=== PATIENT | female | born 1980 | race Caucasian/White ===

== ENCOUNTER 2020-09-22 18:31 | Emergency (ER) | payer BC, OTHER ==
[2020-09-22 18:40] VITALS: TEMP 98.2; BMI 39.9
[2020-09-22] MEDS ORDERED: SODIUM CHLORIDE 0.9% 500 ML INFUS.BAG IV ONE (20:12)
[2020-09-22 20:56] LABS: BASO % 0.8 % (0-2.0); HEMATOCRIT 43.8 % (32.4-45.2); HEMOGLOBIN 15.1 GM/dL (10.7-15.3); LYMPH % 32.4 % (8-40); MCH 29.9 pg (25.7-33.7); MCHC 34.3 g/dl (32.0-36.0); MEAN CELL VOLUME 87.1 fl (80-96); MEAN PLT VOLUME 8.5 fl (7.5-11.1); MONO % 7.1 % (3.8-10.2); NEUT % 57.7 % (42.8-82.8); PLATELET COUNT 333 10^3/uL (134-434); RBC 5.03 M/mm3 (3.60-5.2); RDW 13.1 % (11.6-15.6); WHITE BLOOD COUNT 12.4 K/mm3 (4.0-10.0)
[2020-09-22 21:15] LABS: CHLORIDE 104 mmol/L (98-107); SODIUM 137 mmol/L (136-145)
[2020-09-22 21:17] LABS: CALCIUM 8.9 mg/dL (8.5-10.1)
[2020-09-22 21:18] LABS: ALBUMIN 3.7 g/dl (3.4-5.0); ANION GAP 9 MMOL/L (8-16); BLOOD UREA NITROGEN 15.8 mg/dL (7-18); CO2 24 mmol/L (21-32); GLUCOSE,RANDOM 109 mg/dL (74-106)
[2020-09-22 21:20] LABS: INR 0.89 (0.83-1.09); PROTHROMBIN TIME (PATIENT) 10.8 SEC (9.7-13.0)
[2020-09-22 21:21] LABS: CREATININE 0.7 mg/dL (0.55-1.3); SGOT/AST 18 U/L (15-37); SGPT/ALT 25 U/L (13-61)
[2020-09-22 21:23] LABS: BILIRUBIN,TOTAL 0.2 mg/dL (0.2-1); TOT PROT 7.6 g/dl (6.4-8.2)
[2020-09-22 21:24] LABS: ALK PHOS 117 U/L (45-117)
[2020-09-22 21:56] LABS: URINE APPEARANCE CLEAR; URINE BILIRUBIN NEGATIVE (NEGATIVE); URINE COLOR YELLOW; URINE GLUCOSE (UA) NEGATIVE (NEGATIVE); URINE KETONE TRACE (NEGATIVE); URINE LEUK ESTERASE NEGATIVE (NEGATIVE); URINE NITRITE NEGATIVE (NEGATIVE); URINE PROTEIN NEGATIVE (NEGATIVE)
[2020-09-22 22:57] VITALS: BP 118/75; PULSE 79
== END 2020-09-22 22:59 | disposition home or self-care (01) ==
LOC: JER 18:31
DX: M79.604 Pain in right leg (principal); M79.605 Pain in left leg
CPT/HCPCS: 36415; 71046-TC-FY; 80053; 81003; 82550; 84484; 85025; 85610; 85730; 87086; 93005; 93010; 93970-TC; 99285-25

== ENCOUNTER 2020-09-26 21:03 | Observation (INO) | payer BC ==
[2020-09-26 21:39] VITALS: BMI 40.6
[2020-09-26 23:39] LABS: URINE APPEARANCE CLOUDY; URINE BILIRUBIN NEGATIVE (NEGATIVE); URINE COLOR YELLOW; URINE GLUCOSE (UA) NEGATIVE (NEGATIVE); URINE KETONE NEGATIVE (NEGATIVE); URINE LEUK ESTERASE NEGATIVE (NEGATIVE); URINE NITRITE NEGATIVE (NEGATIVE); URINE PROTEIN NEGATIVE (NEGATIVE)
[2020-09-26 23:48] LABS: HCG,QUALITATIVE URINE Negative
[2020-09-26 23:52] LABS: BASO % 1.1 % (0-2.0); EOS % 1.7 % (0-4.5); HEMATOCRIT 40.1 % (32.4-45.2); HEMOGLOBIN 13.9 GM/dL (10.7-15.3); LYMPH % 36.2 % (8-40); MCH 30.1 pg (25.7-33.7); MCHC 34.5 g/dl (32.0-36.0); MEAN CELL VOLUME 87.2 fl (80-96); MONO % 7.1 % (3.8-10.2); NEUT % 53.9 % (42.8-82.8); PLATELET COUNT 290 10^3/uL (134-434); RDW 13.2 % (11.6-15.6); WHITE BLOOD COUNT 11.5 K/mm3 (4.0-10.0)
[2020-09-26 23:58] LABS: INR 0.91 (0.83-1.09)
[2020-09-27 00:01] LABS: ACTIVATED PTT 29.9 SECONDS (25.2-36.5)
[2020-09-27 00:12] LABS: CHLORIDE 106 mmol/L (98-107); SODIUM 140 mmol/L (136-145)
[2020-09-27 00:14] LABS: ALBUMIN 3.4 g/dl (3.4-5.0); ANION GAP 8 MMOL/L (8-16); BLOOD UREA NITROGEN 18.8 mg/dL (7-18); CALCIUM 8.7 mg/dL (8.5-10.1); CO2 26 mmol/L (21-32); GLUCOSE,RANDOM 87 mg/dL (74-106); MAGNESIUM 2.1 mg/dL (1.8-2.4)
[2020-09-27 00:18] LABS: CREATININE 0.7 mg/dL (0.55-1.3); SGOT/AST 15 U/L (15-37); SGPT/ALT 23 U/L (13-61)
[2020-09-27 00:19] LABS: BILIRUBIN,TOTAL 0.2 mg/dL (0.2-1)
[2020-09-27 00:20] LABS: ALK PHOS 119 U/L (45-117); TOT PROT 7.1 g/dl (6.4-8.2)
[2020-09-27 03:09] LABS: COCAINE, UR NEGATIVE (NEGATIVE); PHENCYCLIDINE,URINE NEGATIVE (NEGATIVE); URINE AMPHETAMINES NEGATIVE (NEGATIVE)
[2020-09-27] MEDS ORDERED: ACETAMINOPHEN 325 MG TABLET (FP) PO PRN (03:16)
[2020-09-27 03:25] LABS: METHADONE, UR NEGATIVE (NEGATIVE); OPIATES, URI NEGATIVE (NEGATIVE); URINE BARBITURATES NEGATIVE (NEGATIVE); URINE BENZODIAZEPINES NEGATIVE (NEGATIVE)
[2020-09-27] MEDS ORDERED: DOCUSATE SODIUM 100 MG CAPSULE (FP) PO PRN (04:08)
[2020-09-27 06:23] LABS: BASO % 0.8 % (0-2.0); EOS % 1.8 % (0-4.5); HEMATOCRIT 40.8 % (32.4-45.2); HEMOGLOBIN 13.5 GM/dL (10.7-15.3); LYMPH % 30.3 % (8-40); MCH 29.5 pg (25.7-33.7); MCHC 33.1 g/dl (32.0-36.0); MEAN PLT VOLUME 8.7 fl (7.5-11.1); MONO % 7.8 % (3.8-10.2); NEUT % 59.3 % (42.8-82.8); PLATELET COUNT 276 10^3/uL (134-434); RBC 4.58 M/mm3 (3.60-5.2); RDW 13.3 % (11.6-15.6); WHITE BLOOD COUNT 10.4 K/mm3 (4.0-10.0)
[2020-09-27 06:40] LABS: CHLORIDE 108 mmol/L (98-107); SODIUM 138 mmol/L (136-145)
[2020-09-27 06:44] LABS: ANION GAP 6 MMOL/L (8-16); CALCIUM 8.1 mg/dL (8.5-10.1); CO2 23 mmol/L (21-32)
[2020-09-27 06:45] LABS: BLOOD UREA NITROGEN 17.8 mg/dL (7-18); GLUCOSE,RANDOM 133 mg/dL (74-106)
[2020-09-27 06:47] LABS: CHOLESTEROL 196 mg/dL (50-200); CREATININE 0.5 mg/dL (0.55-1.3); SGOT/AST 10 U/L (15-37); SGPT/ALT 19 U/L (13-61); TRIGLYCERIDES 167 mg/dL (0-150)
[2020-09-27 06:48] LABS: LDL CHOLESTEROL (ONLY SJRH) 127 mg/dL (5-100); TOT PROT 6.3 g/dl (6.4-8.2)
[2020-09-27 06:49] LABS: ALK PHOS 101 U/L (45-117); BILIRUBIN,TOTAL 0.2 mg/dL (0.2-1)
[2020-09-27 06:50] LABS: HDL CHOLESTEROL 42 mg/dL (40-60)
[2020-09-27 09:13] VITALS: TEMP 98.1
[2020-09-27] MEDS ORDERED: DOCUSATE SODIUM 100 MG CAPSULE (FP) PO SCH (10:00)
[2020-09-27 11:53] VITALS: BP 120/66; PULSE 74
== END 2020-09-27 12:04 | disposition home or self-care (01) ==
LOC: JER 21:03 → UNDOADMOB 09-27 00:56 → JERBED 09-27 00:56 → OBSVTOIN 09-27 03:17 → INTOOBSV 09-27 03:17 → JERBED 09-27 10:48
PROVIDERS: ADMIT Internal Medicine; ATTEND Internal Medicine
DX: Z85.43 Personal history of malignant neoplasm of ovary (principal); R06.02 Shortness of breath; R07.9 Chest pain, unspecified; D68.52 Prothrombin gene mutation; E03.9 Hypothyroidism, unspecified; J45.909 Unspecified asthma, uncomplicated; E78.5 Hyperlipidemia, unspecified; E28.2 Polycystic ovarian syndrome; Z79.899 Other long term (current) drug therapy; M79.661 Pain in right lower leg; Z88.0 Allergy status to penicillin; Z91.018 Allergy to other foods; Z91.013 Allergy to seafood; Z91.041 Radiographic dye allergy status; F17.210 Nicotine dependence, cigarettes, uncomplicated
CPT/HCPCS: 36415; 70450-TC; 71046-TC-FY; 80053; 80061; 80307; 81003; 82550; 82607; 83036; 83721; 83735; 84100; 84439; 84443; 84484; 84703; 85025; 85379; 85610; 85730; 93005; 93010; 93971-TC; 99285-25; C9803; G0378; U0003; U0005

== ENCOUNTER 2020-11-16 16:51 | Inpatient (IN) | payer BC, OTHER ==
[2020-11-16] MEDS ORDERED: CLINDAMYCIN 900 MG PREMIX IVPB 900 MG/50 ML BAG IVPB ONE ×2 (18:35→20:11)
[2020-11-16] MEDS ORDERED: ACETAMINOPHEN 1000 MG/100 ML BAG IVPB ONE (18:36)
[2020-11-16 18:44] LABS: BASO % 1.2 % (0-2.0); EOS % 1.4 % (0-4.5); HEMATOCRIT 37.5 % (32.4-45.2); LYMPH % 25.2 % (8-40); MCH 30.1 pg (25.7-33.7); MCHC 34.6 g/dl (32.0-36.0); MEAN CELL VOLUME 86.9 fl (80-96); MEAN PLT VOLUME 7.9 fl (7.5-11.1); NEUT % 62.2 % (42.8-82.8); PLATELET COUNT 327 10^3/uL (134-434); RBC 4.31 M/mm3 (3.60-5.2); RDW 12.7 % (11.6-15.6); WHITE BLOOD COUNT 12.3 K/mm3 (4.0-10.0)
[2020-11-16 19:02] LABS: CHLORIDE 109 mmol/L (98-107); SODIUM 140 mmol/L (136-145)
[2020-11-16 19:03] LABS: INR 1.04 (0.83-1.09); PROTHROMBIN TIME (PATIENT) 12.6 SEC (9.7-13.0)
[2020-11-16 19:04] LABS: CALCIUM 8.7 mg/dL (8.5-10.1)
[2020-11-16 19:05] LABS: ALBUMIN 3.1 g/dl (3.4-5.0); ANION GAP 6 MMOL/L (8-16); CO2 24 mmol/L (21-32); GLUCOSE,RANDOM 108 mg/dL (74-106)
[2020-11-16 19:06] LABS: ACTIVATED PTT 29.5 SECONDS (25.2-36.5)
[2020-11-16 19:08] LABS: CREATININE 0.8 mg/dL (0.55-1.3); SGOT/AST 3 U/L (15-37); SGPT/ALT 17 U/L (13-61)
[2020-11-16 19:11] LABS: ALK PHOS 112 U/L (45-117)
[2020-11-16 19:14] LABS: BILIRUBIN,TOTAL 0.4 mg/dL (0.2-1)
[2020-11-16] MEDS ORDERED: ACETAMINOPHEN INJECTION 100 ML IVPB ONE (20:11)
[2020-11-16] MEDS ORDERED: NICOTINE 7 MG/24 HOURS TOPICAL PATCH TD PRN (21:34)
[2020-11-16] MEDS ORDERED: SODIUM CHLORIDE 1,000 ML IV SCH (22:00)
[2020-11-17] MEDS ORDERED: ACETAMINOPHEN 1000 MG/100 ML BAG IVPB ONE (02:18)
[2020-11-17] MEDS: CLINDAMYCIN 900 MG PREMIX IVPB 900 MG/50 ML BAG IVPB SCH ×3 (02:39→17:28)
[2020-11-17 05:30] VITALS: BMI 42.0
[2020-11-17] MEDS ORDERED: ACETAMINOPHEN INJECTION 100 ML IVPB ONE (06:30)
[2020-11-17 09:36] LABS: BASO % 0.6 % (0-2.0); EOS % 1.4 % (0-4.5); HEMATOCRIT 33.9 % (32.4-45.2); HEMOGLOBIN 11.8 GM/dL (10.7-15.3); MCH 30.4 pg (25.7-33.7); MEAN PLT VOLUME 8.1 fl (7.5-11.1); MONO % 9.7 % (3.8-10.2); NEUT % 63.3 % (42.8-82.8); PLATELET COUNT 259 10^3/uL (134-434); RBC 3.89 M/mm3 (3.60-5.2); RDW 12.9 % (11.6-15.6); WHITE BLOOD COUNT 9.8 K/mm3 (4.0-10.0)
[2020-11-17] MEDS ORDERED: PT OWN MED DRAWER 7, Y5N ONE (10:17)
[2020-11-17 10:27] LABS: ALBUMIN 2.8 g/dl (3.4-5.0)
[2020-11-17 10:28] LABS: BLOOD UREA NITROGEN 13.8 mg/dL (7-18); CALCIUM 7.9 mg/dL (8.5-10.1)
[2020-11-17 10:30] LABS: PHOSPHOROUS 3.7 mg/dL (2.5-4.9)
[2020-11-17 10:43] LABS: BILIRUBIN,TOTAL 0.3 mg/dL (0.2-1); CREATININE 0.7 mg/dL (0.55-1.3); MAGNESIUM 2.3 mg/dL (1.8-2.4); TOT PROT 6.8 g/dl (6.4-8.2)
[2020-11-17] MEDS ORDERED: BUPIVACAINE HCL/PF 0.5% (5MG/ML) 10 ML VIAL ONE (12:31)
[2020-11-17] MEDS ORDERED: MIDAZOLAM HCL 2 MG/2 ML SINGLE DOSE VIAL ONE (12:34)
[2020-11-17] MEDS ORDERED: CLINDAMYCIN 900 MG PREMIX BAG IVPB ONE (12:58)
[2020-11-17] MEDS ORDERED: ONDANSETRON 4 MG/2 ML VIAL ONE (13:03)
[2020-11-17] MEDS ORDERED: PROMETHAZINE HCL 25 MG/1 ML VIAL IVPUSH PRN (13:12)
[2020-11-17] MEDS ORDERED: ONDANSETRON 4 MG/2 ML VIAL IVPUSH PRN (13:12)
[2020-11-17] MEDS ORDERED: NICOTINE 7 MG/24 HOURS TOPICAL PATCH TD PRN (13:54)
[2020-11-17] MEDS: LACTATED RINGERS SOLUTION 1,000 ML IV SCH (16:31)
[2020-11-17 18:01] LABS: URINE APPEARANCE CLEAR; URINE BILIRUBIN NEGATIVE (NEGATIVE); URINE COLOR YELLOW; URINE GLUCOSE (UA) NEGATIVE (NEGATIVE); URINE KETONE NEGATIVE (NEGATIVE); URINE LEUK ESTERASE NEGATIVE (NEGATIVE); URINE NITRITE NEGATIVE (NEGATIVE); URINE PROTEIN NEGATIVE (NEGATIVE); URINE UROBILINOGEN 0.2 mg/dL (0.2-1.0)
[2020-11-18] MEDS ORDERED: ACETAMINOPHEN 1000 MG/100 ML BAG IVPB ONE (00:39)
[2020-11-18] MEDS: CLINDAMYCIN 900 MG PREMIX IVPB 900 MG/50 ML BAG IVPB SCH ×3 (01:36→17:05)
[2020-11-18] MEDS ORDERED: NICOTINE 7 MG/24 HOURS TOPICAL PATCH TD SCH (09:04)
[2020-11-18] MEDS: NICOTINE 7 MG/24 HOURS TOPICAL PATCH TD SCH ×2 (09:38→10:00)
[2020-11-18] MEDS: ACETAMINOPHEN 325 MG TABLET (FP) PO PRN (10:40)
[2020-11-18] MEDS: LACTATED RINGERS SOLUTION 1,000 ML IV SCH (17:12)
[2020-11-19] MEDS ORDERED: PT OWN MED DRAWER 7, Y5N ONE ×2 (00:52→09:37)
[2020-11-19] MEDS: CLINDAMYCIN 900 MG PREMIX IVPB 900 MG/50 ML BAG IVPB SCH ×3 (01:47→18:12)
[2020-11-19] MEDS: ACETAMINOPHEN 325 MG TABLET (FP) PO PRN ×2 (01:53→16:58)
[2020-11-19] MEDS: NICOTINE 7 MG/24 HOURS TOPICAL PATCH TD SCH (09:36)
[2020-11-19] MEDS ORDERED: POLYETHYLENE GLYCOL (HEALTHYLAX) 3350 17 GM PACKET PO PRN (10:51)
[2020-11-19] MEDS ORDERED: SENNOSIDES 8.6MG TABLET (FP) PO PRN (10:51)
[2020-11-20] MEDS: CLINDAMYCIN 900 MG PREMIX IVPB 900 MG/50 ML BAG IVPB SCH ×3 (01:33→18:16)
[2020-11-20] MEDS: ACETAMINOPHEN 325 MG TABLET (FP) PO PRN (02:23)
[2020-11-20] MEDS ORDERED: PT OWN MED DRAWER 7, Y5N ONE ×2 (08:50→17:12)
[2020-11-20] MEDS: NICOTINE 7 MG/24 HOURS TOPICAL PATCH TD SCH (09:06)
[2020-11-20] MEDS: POLYETHYLENE GLYCOL (HEALTHYLAX) 3350 17 GM PACKET PO SCH (21:33)
[2020-11-20] MEDS: DOCUSATE SODIUM 100 MG CAPSULE (FP) PO SCH (21:33)
[2020-11-21] MEDS ORDERED: PT OWN MED DRAWER 7, Y5N ONE (01:52)
[2020-11-21] MEDS: CLINDAMYCIN 900 MG PREMIX IVPB 900 MG/50 ML BAG IVPB SCH ×2 (01:57→09:22)
[2020-11-21] MEDS: POLYETHYLENE GLYCOL (HEALTHYLAX) 3350 17 GM PACKET PO SCH (09:22)
[2020-11-21] MEDS: NICOTINE 7 MG/24 HOURS TOPICAL PATCH TD SCH (09:23)
[2020-11-21] MEDS: DOCUSATE SODIUM 100 MG CAPSULE (FP) PO SCH (09:23)
[2020-11-21 10:13] VITALS: BP 133/94; PULSE 75; TEMP 98
== END 2020-11-21 11:59 | disposition home or self-care (01) | DRG 364 ==
LOC: JERFT 16:51 → JER 16:51 → JERBED 18:34 → J5S 11-17 01:48
PROVIDERS: ADMIT Internal Medicine
PROC: 0J990ZZ Drainage of Buttock Subcutaneous Tissue and Fascia, Open Approach (ICD-10-PCS; principal; 2020-11-17 13:00)
DX: L05.01 Pilonidal cyst with abscess (principal); E03.9 Hypothyroidism, unspecified; E78.5 Hyperlipidemia, unspecified; F17.210 Nicotine dependence, cigarettes, uncomplicated; F98.8 Other specified behavioral and emotional disorders with onset usually occurring in childhood and adolescence; K59.00 Constipation, unspecified; G51.0 Bell's palsy; F90.9 Attention-deficit hyperactivity disorder, unspecified type; D72.829 Elevated white blood cell count, unspecified; F39 Unspecified mood [affective] disorder; J45.909 Unspecified asthma, uncomplicated; Z86.73 Personal history of transient ischemic attack (TIA), and cerebral infarction without residual deficits; Z85.43 Personal history of malignant neoplasm of ovary; E66.01 Morbid (severe) obesity due to excess calories; Z68.41 Body mass index [BMI] 40.0-44.9, adult; Z88.0 Allergy status to penicillin; Z85.00 Personal history of malignant neoplasm of unspecified digestive organ
CPT/HCPCS: 36415; 71045-TC-FY; 80053; 81003; 83735; 84100; 84443; 84702; 85025; 85610; 85730; 86850; 86900; 86901; 87040; 87070; 87076; 87205; 93005; 93010; 94760; 97116-GP; 97162-GP; 99285-25; C9803; J0131; U0003; U0005

== ENCOUNTER 2021-02-02 12:11 | Emergency (ER) | payer BC, OTHER ==
[2021-02-02 12:25] VITALS: BP 132/77; PULSE 79; TEMP 98.4; BMI 40.3
== END 2021-02-02 13:06 | disposition home or self-care (01) ==
LOC: JERFT 12:11
DX: L05.91 Pilonidal cyst without abscess (principal)
CPT/HCPCS: 99283-25

== ENCOUNTER 2021-02-19 04:42 | Day surgery (SDC) | payer BC ==
[2021-02-13 15:35] VITALS: BMI 40.5
[2021-02-19] MEDS ORDERED: PROPOFOL 20 ML ONE (12:59)
[2021-02-19] MEDS ORDERED: MIDAZOLAM HCL 2 MG/2 ML SINGLE DOSE VIAL ONE ×2 (13:00)
[2021-02-19] MEDS ORDERED: BUPIVACAINE HCL/PF 0.5% (5MG/ML) 10 ML VIAL ONE (13:23)
[2021-02-19] MEDS ORDERED: LIDOCAINE HCL 1%, 10 MG/ML (20ML VIAL) ONE (13:23)
[2021-02-19] MEDS ORDERED: METHYLENE BLUE 50 MG/10 ML AMPUL ONE (13:45)
[2021-02-19] MEDS ORDERED: ceFAZolin SODIUM 1 GM VIAL IVPB ONE (13:48)
[2021-02-19] MEDS ORDERED: ACETAMINOPHEN 1000 MG/100 ML VIAL IVPB ONE (14:31)
[2021-02-19] MEDS ORDERED: oxyCODONE HCL 5 MG TABLET PO PRN (14:31)
[2021-02-19] MEDS ORDERED: ONDANSETRON 4 MG/2 ML VIAL IVPUSH PRN (14:31)
[2021-02-19] MEDS ORDERED: LACTATED RINGERS SOLUTION 1,000 ML IV SCH (14:45)
[2021-02-19] MEDS ORDERED: ACETAMINOPHEN 325 MG TABLET (FP) ONE (20:31)
[2021-02-19 20:41] VITALS: BP 128/74; PULSE 69; TEMP 97.5
== END 2021-02-19 20:50 | disposition home or self-care (01) ==
LOC: JASU-SURG 04:42
PROVIDERS: ATTEND Surgery
PROC: 0JB90ZZ Excision of Buttock Subcutaneous Tissue and Fascia, Open Approach (ICD-10-PCS; principal; 2021-02-19 12:30)
DX: L05.92 Pilonidal sinus without abscess (principal); L05.91 Pilonidal cyst without abscess
CPT/HCPCS: 81025; 88304-TC; 94760; J0131; Q9968

== ENCOUNTER 2021-03-05 17:24 | Emergency (ER) | payer BC ==
[2021-03-05 17:42] VITALS: BP 115/82; PULSE 92; TEMP 98.2; BMI 39.6
[2021-03-05 18:46] LABS: BASO % 0.7 % (0-2.0); EOS % 1.7 % (0-4.5); HEMATOCRIT 39.1 % (32.4-45.2); HEMOGLOBIN 13.4 GM/dL (10.7-15.3); LYMPH % 31.3 % (8-40); MCH 30.3 pg (25.7-33.7); MCHC 34.3 g/dl (32.0-36.0); MEAN CELL VOLUME 88.2 fl (80-96); MEAN PLT VOLUME 7.8 fl (7.5-11.1); NEUT % 58.3 % (42.8-82.8); PLATELET COUNT 330 10^3/uL (134-434); RBC 4.43 M/mm3 (3.60-5.2); RDW 13.3 % (11.6-15.6); WHITE BLOOD COUNT 10.6 K/mm3 (4.0-10.0)
== END 2021-03-05 19:06 | disposition home or self-care (01) ==
LOC: JER 17:24
DX: R11.0 Nausea (principal); Z48.01 Encounter for change or removal of surgical wound dressing
CPT/HCPCS: 36415; 85025; 99283-25

== ENCOUNTER 2021-03-15 19:41 | Emergency (ER) | payer BC ==
[2021-03-15 19:54] VITALS: BP 132/81; PULSE 110; TEMP 99.1; BMI 39.6
[2021-03-15] MEDS ORDERED: ONDANSETRON *ODT* 4 MG TABLET SL ONE (21:07)
[2021-03-15] MEDS ORDERED: MAG HYDROX/AL HYDROX/SIMETH 30 ML UNIT-DOSE CUP PO ONE (21:08)
[2021-03-15] MEDS ORDERED: IBUPROFEN 600 MG TABLET (FP) PO ONE ×2 (21:08→22:33)
[2021-03-15] MEDS ORDERED: ONDANSETRON *ODT* 4 MG TABLET ONE (22:32)
[2021-03-15] MEDS ORDERED: MAG HYDROX/AL HYDROX/SIMETH 30 ML UNIT-DOSE CUP ONE (22:33)
[2021-03-17 23:07] LABS: SARS-CoV-2 NAA Not Detected (Not Detected)
== END 2021-03-15 23:34 | disposition home or self-care (01) ==
LOC: JER 19:41
DX: K52.9 Noninfective gastroenteritis and colitis, unspecified (principal); J02.9 Acute pharyngitis, unspecified
CPT/HCPCS: 87070; 87077; 87804; 87807; 99283-25; C9803; Q0162; U0003; U0005

== ENCOUNTER 2022-01-04 15:50 | Emergency (ER) | payer BC ==
[2022-01-04 16:06] VITALS: BP 121/71; PULSE 99; RESP 18; TEMP 98.2; BMI 42.0
[2022-01-04 18:06] LABS: PH,URINE 5.5 (5.0-8.0); URINE APPEARANCE CLEAR; URINE BILIRUBIN NEGATIVE (NEGATIVE); URINE COLOR YELLOW; URINE GLUCOSE (UA) NEGATIVE (NEGATIVE); URINE KETONE TRACE (NEGATIVE); URINE LEUK ESTERASE NEGATIVE (NEGATIVE); URINE NITRITE NEGATIVE (NEGATIVE); URINE PROTEIN NEGATIVE (NEGATIVE); URINE UROBILINOGEN 0.2 mg/dL (0.2-1.0)
[2022-01-04 18:09] LABS: HCG,QUALITATIVE URINE Negative
[2022-01-04] MEDS ORDERED: DEXAMETHASONE SOD PHOSPHATE 10 MG/1 ML VIAL ONE (21:31)
[2022-01-04] MEDS ORDERED: DEXAMETHASONE LIQUID 0.5 MG/5 ML PO ONE (21:32)
== END 2022-01-04 21:43 | disposition home or self-care (01) ==
LOC: JER 15:50
DX: M54.9 Dorsalgia, unspecified (principal)
CPT/HCPCS: 72148-TC; 81003; 84703; 87086; 99284-25

== ENCOUNTER 2022-03-01 17:51 | Emergency (ER) | payer BC, OTHER ==
[2022-03-01 18:05] VITALS: BP 107/72; PULSE 78; RESP 18; TEMP 98; BMI 42.0
[2022-03-01] MEDS ORDERED: ACETAMINOPHEN 325 MG TABLET (FP) PO ONE (20:03)
== END 2022-03-01 21:53 | disposition home or self-care (01) ==
LOC: JER 17:51 → JERFT 17:51
DX: M54.89 Other dorsalgia (principal); M25.511 Pain in right shoulder; V49.40XA Driver injured in collision with unspecified motor vehicles in traffic accident, initial encounter
CPT/HCPCS: 71046-TC-FY; 71111-TC-FY; 73030-TC-RT-FY; 73560-TC-LT-FY; 99284-25

== ENCOUNTER 2024-06-25 14:15 | Emergency (ER) | payer BC ==
[2024-06-25 14:40] VITALS: BMI 43.2
[2024-06-25] MEDS ORDERED: ACETAMINOPHEN INJECTION 100 ML ONE (16:28)
[2024-06-25 16:30] LABS: ABSOLUTE IMMATURE GRANULOCYTES 0.03 x10^3/uL (0.0-0.031); BASOPHILS # 0.08 x10^3/uL (0.01-0.08); EOSINOPHIL % 1.4 % (0.7-5.8); EOSINOPHILS # 0.13 x10^3/uL (0.04-0.36); HEMATOCRIT 39.3 % (34.1-44.9); MCHC 33.1 g/dl (32.2-35.5); MEAN CELL VOLUME 87.7 fl (79.4-94.8); MEAN PLT VOLUME 9.8 fl (9.4-12.3); MONOCYTE # 0.78 x10^3/uL (0.24-0.86); MONOCYTE % 8.2 % (4.7-12.5); PLATELET COUNT 312 x10^3/uL (182-369); RDW 12.5 % (12.2-17.1)
[2024-06-25] MEDS: ACETAMINOPHEN 1000 MG/100 ML BAG IVPB ONE (16:34)
[2024-06-25] MEDS: ACETAMINOPHEN 500 MG TABLET (FP) PO ONE (16:34)
[2024-06-25 16:36] VITALS: PULSE 72; TEMP 98.4
[2024-06-25 16:37] LABS: INR 1.05 (0.83-1.09); PROTHROMBIN TIME (PATIENT) 11.4 SEC (9.7-13.0)
[2024-06-25 16:40] LABS: ACTIVATED PTT 28.3 SECONDS (25.2-36.5)
[2024-06-25 16:53] LABS: POTASSIUM 4.1 mmol/L (3.5-5.1)
[2024-06-25 16:56] LABS: CALCIUM 8.7 mg/dL (8.5-10.1)
[2024-06-25 16:57] LABS: ALBUMIN 3.2 g/dl (3.4-5.0); BLOOD UREA NITROGEN 14.9 mg/dL (7-18); MAGNESIUM 2.2 mg/dL (1.8-2.4)
[2024-06-25 17:00] LABS: CREATININE 0.8 mg/dL (0.55-1.3)
[2024-06-25 17:01] LABS: BILIRUBIN,TOTAL 0.3 mg/dL (0.2-1)
[2024-06-25 17:12] VITALS: BP 106/53; RESP 20
== END 2024-06-25 17:00 | disposition home or self-care (01) ==
LOC: JER 14:15
PROC: 3E033NZ Introduction of Analgesics, Hypnotics, Sedatives into Peripheral Vein, Percutaneous Approach (ICD-10-PCS; principal; 2024-06-25)
DX: M54.50 Low back pain, unspecified (principal); G89.29 Other chronic pain; R20.0 Anesthesia of skin; R29.898 Other symptoms and signs involving the musculoskeletal system
CPT/HCPCS: 36415; 80053; 83735; 84484; 85025; 85610; 85730; 99284-25; J0131